=== PATIENT | female | born 1990 | race Caucasian/White ===

== ENCOUNTER 2018-05-30 19:23 | Emergency (ER) | payer SELFPAY ==
[~2018-05-30] VITALS: Ht 170.2 cm; Wt 78.0 kg
[2018-05-30 19:36] VITALS: Ht 170.2 cm; Wt 78.0 kg
[2018-05-30 21:24] LABS: BASOPHIL % 0.5 % (0-2)
[2018-05-30 21:27] LABS: PLATELET COUNT 278 x10^3mcL (130-400); RED CELL DISTRIBUTION WIDTH 12.4 % (11.5-14.5)
[2018-05-30 22:35] VITALS: BP 102/69
== END 2018-05-30 22:35 | disposition home or self-care (01) ==
LOC: ED 19:23
PROVIDERS: Emergency Medicine
DX: N92.0 Excessive and frequent menstruation with regular cycle (principal)
CPT/HCPCS: 36415